=== PATIENT | female | born 1950 ===

== ENCOUNTER → 2016-12-03 | Outpatient (CLI) | payer MEDICARE, BC ==
[~2016-12-03] MED LIST: CALCIUM 600 +1 EAC6 PO; EQL OMEGA 3 FI1 EACH PO; NORCO 5-325 MG1 TAB PO; ZOCOR20 MG PO
== END | disposition disaster alternative care site (69) ==
LOC: LKCL 15:57
DX: R87.610 Atypical squamous cells of undetermined significance on cytologic smear of cervix (ASC-US) (principal)